=== PATIENT | male | born 1970 | race Caucasian/White ===

== ENCOUNTER 2019-02-14 14:06 | Emergency (ER) | payer SELFPAY ==
[~2019-02-14] VITALS: Ht 180.3 cm; Wt 84.4 kg
[2019-02-14 14:08] VITALS: BP 136/92
[2019-02-14] MEDS ORDERED: NKM (14:14)
--- NOTE | 2019-02-14 14:15 | NUR ---
ED Nurse Note: Patient walked into ED from home patient had UA done for his [employer] employment, which showed blood in his urine, patient wanted to get checked up. patient is alert/awake x4, ambulatory. patient also c/o coughing out phlegm.
[2019-02-14 14:24] LABS: APPEARANCE,URINE CLEAR; BILIRUBIN, URINE NEGATIVE (NEGATIVE); COLOR,URINE PALE YELLOW; GLUCOSE, URINE (UA) NEGATIVE (NEGATIVE); KETONES,URINE NEGATIVE (NEGATIVE); LEUKOCYTE ESTERASE ,URINE NEGATIVE (NEGATIVE); NITRITE,URINE NEGATIVE (NEGATIVE); PH,URINE 5 (4.5-8.0); PROTEIN,URINE NEGATIVE (NEGATIVE); UROBILINOGEN,URINE NORMAL MG/DL (0.0-1.0)
[2019-02-14 14:46] VITALS: BP 136/92
--- NOTE | 2019-02-14 14:46 | NUR ---
ER DISCHARGE NOTE: Patient is cleared to be discharged per ERMD Dr. Tilley ok for the patient to be dischrged without chest xray at this time, patient refuses to get chest xray at this time. pt is aox4, on room air, with stable vital signs. pt was given dc instructions, pt was able to verbalize understanding, pt id band removed without complications. pt is able to ambulate with steady gait. pt took all belongings.
--- NOTE | 2019-02-14 14:47 | Emergency Room Report ---
History of Present Illness General Chief Complaint: Abnormal Labs Source: Patient Present Illness HPI 48-year-old male who presented after abnormal urine specimen showed some evidence of hematuria as well as proteinuria on [employer] physical. Patient denies any pain. He denies any current symptoms. He denies any recent trauma. He states that he is a smoker. He reports having some slightly productive cough with dark sputum. He denies any fever or chills. He denies any current chest discomfort. He denies any recent leg pain or swelling. Allergies: Coded Allergies: No Known Allergies (Unverified , 02/14/19) Patient History Past Medical History: see triage record Reviewed Nursing Documentation: PMH: Agreed; PSxH: Agreed Nursing Documentation-PMH Past Medical History: No Stated History Review of Systems All Other Systems: negative except mentioned in HPI Physical Exam Vital Signs Date Time Temp Pulse Resp B/P (MAP) Pulse Ox O2 Delivery O2 Flow Rate FiO2 02/14/19 14:08 98.4 77 16 136/92 97 Room Air General Appearance: well appearing, no apparent distress, alert, GCS 15 Head: normocephalic, atraumatic ENT: hearing grossly normal, normal voice Neck: full range of motion, supple Respiratory: normal inspection, lungs clear, no respiratory distress, speaking full sentences Cardiovascular #1: normal inspection Gastrointestinal: normal inspection, normal bowel sounds Musculoskeletal: normal inspection, no calf tenderness Neurologic: normal inspection, alert, oriented x3, responsive, 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 Differential diagnosis include was not limited to laboratory error, tumor, prostate cancer, kidney stone among others. Patient has a benign exam and does not appear to require any further imaging. His urinalysis showed no evidence of hematuria or proteinuria.Patient was noted to have some increased cough with normal lung sounds. Patient declined chest x-ray imaging in the emergency department. He was advised to follow-up with an outpatient physician for further evaluation and treatment. Last Vital Signs Date Time Temp Pulse Resp B/P (MAP) Pulse Ox O2 Delivery O2 Flow Rate FiO2 02/14/19 14:08 98.4 77 16 136/92 97 Room Air Status: improved Disposition: HOME, SELF-CARE Condition: Stable Patient Instructions: Hematuria, Adult Additional Instructions: No blood seen in urine. Follow up for further evaluation with primary care physician. Saad Tilley MD Feb 14, 2019 14:47
== END 2019-02-14 14:56 | disposition home or self-care (01) ==
LOC: EMR 14:47
DX: R31.9 Hematuria, unspecified (principal); F17.200 Nicotine dependence, unspecified, uncomplicated; R05 Cough
CPT/HCPCS: 81003; 99282